=== PATIENT | male | born 1965 | race African-American/Black ===

== ENCOUNTER 2024-01-23 17:11 | Emergency (ER) | payer OTHER, SELFPAY ==
[2024-01-23 17:12] VITALS: BP 163/94
[2024-01-23 19:45] VITALS: BMI 39.4
[2024-01-23] MEDS: NSS 500 IV (20:46)
[2024-01-23 20:54] LABS: % Basophils 0.9 % (0-2); % Eosinophils 2.8 % (0-6); % Lymphocytes 29.2 % (20.5-51.1); % Monocytes 8.4 % (1.7-9.3); % Neutrophils 57.7 % (42.2-75.2); Absolute Basophils 0.1 10^3/uL (0-0.2); Absolute Eosinophils 0.3 10^3/uL (0-0.7); Absolute Immature Granulocytes 0.1 10^3/uL (0-0.05); Absolute Lymphocytes 2.6 10^3/uL (1.2-3.4); Absolute Monocytes 0.8 10^3/uL (0.1-0.6); Absolute Neutrophils 5.1 10^3/uL (1.4-6.5); Hematocrit 45.4 % (39.0-52.0); Hemoglobin 15.3 g/dL (13.0-18.0); Mean Corp Hgb Conc. 33.7 g/dL (33.0-37.0); Mean Corpuscular Hgb 27.8 pg (27.0-31.0); Mean Corpuscular Volume 82.5 fL (80.0-94.0); Mean Platelet Volume 10.3 fL (7.4-10.4); Nucleated Red Blood Cells % 0 % (-); Platelet Count 247 10^3/uL (130-400); Red Cell Dist. Width 14.1 % (11.5-14.5); Urine Albumin Negative (Neg - Trace); Urine Bilirubin Negative (Negative); Urine Character Clear (Clear); Urine Color Yellow; Urine Glucose Negative (Negative); Urine Ketone Negative (Negative); Urine Leukocyte Negative (Negative); Urine Nitrite Negative (Negative); Urine Occult Blood Negative (Negative); Urine Urobilinogen Negative (Neg - 1+); White Blood Cell Count 8.9 10^3/uL (4.8-10.8)
[2024-01-23] MEDS: ZOFRAN 4 MG IV (20:57)
[2024-01-23] MEDS: OMNIPAQUE 50 ML PO (20:57)
[2024-01-23 21:06] LABS: Lactic Acid 0.8 mmol/L (0.7-2.0)
[2024-01-23 21:19] LABS: ALT (SGPT) 31 U/L (0-50); AST (SGOT) 30 U/L (17-59); Albumin 4.5 g/dl (3.5-5.0); Alkaline Phosphatase 84 U/L (38-126); Blood Urea Nitrogen 19 mg/dl (9-20); Calcium 9.5 mg/dl (8.4-10.2); Carbon Dioxide 28 mmol/L (22-30); Chloride 103 mmol/L (98-107); Glucose 85 mg/dl (70-99); Lipase 116 U/L (23-300); Potassium 4.4 mmol/L (3.5-5.1); Sodium 136 mmol/L (135-145); Total Bilirubin 0.5 mg/dl (0.2-1.3); Total Protein 7.5 g/dl (6.3-8.2); eGFR > 60.00
--- NOTE | 2024-01-23 23:15 | ED.GENMED ---
History of Present Illness
General
Chief Complaint: Abdominal Pain
Source: patient, spouse and family
Exam Limitations: none
Time Seen by Provider: 01/23/24 18:41
Nursing documentation reviewed up to this point in time: agreed with
Travel History
Have you had any contact with someone who has COVID-19?: No
Do you have any symptoms of coronavirus? Fever > 100 degrees, chills, cough, shortness of breath, sore throat, loss of taste or smell, muscle aches, or headache?: No
History of Present Illness
History of Present Illness:
58-year-old male with past medical history of previous PE currently on Eliquis, history of diverticulitis hypertension hyperlipidemia, CHF presenting to the emergency department today with concerns of left lower quadrant abdominal pain. He claims
this feels somewhat similar to previous episodes of diverticulitis. Denies specific fever no nausea vomiting no chest pain no urinary symptoms.
Past History
Past History
ED Past Medical History: CHF, HTN, NIDDM and Other (diverticulitis)
ED Past Surgical History: Bowel resection and Other ([place] tooth extraction and, wrist tendon repair)
Social History
Tobacco: Non-smoker
Alcohol: None
Drug: None
Personal:
Living: with family
Employment: Employed
Family History
Family History: Adopted
Review of Systems
Review of Systems
Allergies reviewed?: Yes
All Other Systems: ROS reviewed and negative except as documented in HPI and ROS
Phy Exam
Physical Exam
Physical Exam:
GENERAL: Alert , in no apparent distress
EYE: pupils equal and reactive
NECK: Supple, no significant adenopathy.
ENT: o/p clr, mmm.
CARDIAC: Regular rate and rhythm .
LUNGS: Clear breath sounds bilaterally, no acute respiratory distress, no wheezes/rales/rhonchi
ABDOMEN: Left lower quadrant abdominal pain no guarding remainder of the abdomen soft without tenderness
NEUROLOGICAL: Alert and oriented, no focal neuro deficits
SKIN: Warm and dry, skin intact.
MUSCULOSKELETAL: No edema, well perfused.
PSYCH: Normal and appropriate interaction.
Course
Orders/Labs/Results
Orders:
Orders
01/23/24 19:18
CT Abd/pel W Iv And Oral Contr Urgent
Comment:
Reason For Exam: llq pain
0.9% Sodium Chloride 500 ml [Nss] 500 ml IV BOLUS
Iohexol [Omnipaque] See Protocol PO NOW STA
Ondansetron Injectable [Zofran] 4 mg IV NOW STA
01/23/24 20:42
Complete Blood Count/With Diff Urgent
Comprehensive Metabolic Panel Urgent
Lactic Acid Urgent
Lipase Urgent
Urinalysis Reflex To Culture Urgent
Date Specimen was Collected: 01/23/24
Time Specimen was Collected: 20:32
Abnormal Lab Results
01/23/24
20:42
Abs Immat Gran (auto) 0.1 H 10^3/uL
(0-0.05)
Absolute Monos (auto) 0.8 H 10^3/uL
(0.1-0.6)
Immature Gran % 1.0 H %
(0-0.5)
01/23/24 20:42
01/23/24 20:42
Vital Signs
Initial and Last Documented VS:
Initial Vital Signs
Temp Pulse Resp BP Pulse Ox
99.0 F 106 18 163/94 96
01/23/24 17:12 01/23/24 17:12 01/23/24 17:12 01/23/24 17:12 01/23/24 17:12
Last Documented Vital Signs
Temp Pulse Resp BP Pulse Ox
98.8 F 84 17 148/88 97
01/24/24 00:20 01/24/24 00:20 01/24/24 00:20 01/24/24 00:01/24/24 00:20
MDM/Problems Addressed
MDM/Problems Addressed:
58-year-old male presenting to the emergency department today with concerns of left lower quadrant abdominal pain over the past few days worsening today. Upon arrival heart rate slightly elevated but improving without specific treatment afebrile
tenderness only to the left lower quadrant no guarding no peritoneal signs. No white count on labs otherwise labs unremarkable urinalysis normal CT scan obtained. CT without acute findings. Patient generally well-appearing at time of
reassessment. Stable for outpatient management advised for close outpatient follow-up. Return precautions given.
*Critical Care Note
Total Time (30-74mins, 75-104mins- exclusive of procedures): Not Applicable
ED Attending Note
-
Portions of this chart may have been created with voice recognition software.� Occasional wrong word or��sound alike� substitutions may have occurred due to the inherent limitations of voice recognition software.
Discharge Plan
Departure
Patient Disposition: Home (Routine Discharge)
Date of Disposition: 01/24/24
Time of Disposition: 00:13
Patient with high blood pressure during this ER visit?: Yes
Condition: Good
Covid-19: Not Applicable
Discharge Problem:
Abdominal pain
Instructions: BLOOD PRESSURE
Prescriptions:
No Action
furosemide 40 MG tablet
40 mg PO DAILY
carvedilol 6.25 MG tablet
6.25 mg PO BID
Patient Comments:
Unsure of dose, knows he takes it BID.
aspirin 81 MG tablet,delayed release (DR/EC)
81 mg PO DAILY
Patient Comments:
advised to call doctor re: instructions
losartan 50 MG tablet
50 mg PO DAILY
albuterol sulfate 1 PUFF HFA aerosol inhaler
1 puff inhalation R Q4HPRN PRN (Reason: breathing) Qty: 1 0RF
Patient Comments:
doesn't use
metformin 500 MG tablet
500 mg PO HS
acetaminophen [Tylenol Extra Strength] 500 MG tablet
500 - 1,000 mg PO DAILYPRN PRN (Reason: back stiffness)
ibuprofen [Advil] 200 MG tablet
200 - 400 mg PO DAILYPRN PRN (Reason: back stiffness)
apixaban [Eliquis] 5 MG tablet
5 mg PO BID
Patient Comments:
told to stop Saturday05/07/21
cholecalciferol (vitamin D3) 2,000 UNITS tablet
2,000 units PO DAILY
penicillin V potassium 500 MG tablet
500 mg PO QID Qty: 28 0RF
Referrals:
Buck Arzate PA-C [Family Provider] -
Activity Restrictions/Additional Instructions:
You came to the emergency department today with concerns of lower abdominal discomfort. Here you had a reassuring evaluation. Please follow closely as an outpatient. Return to the emergency department for any worsening, new or concerning symptoms.
Interventions
Interventions:
*Risk Screen - Suicide Last Done: 01/23/24 17:12
*General Assessment Last Done: 01/23/24 17:12
*Neglect/Abuse Screening Last Done: 01/23/24 17:12
ED- Fall Risk Assessment Last Done: 01/23/24 19:45
*ED COVID-19 Vaccine History Last Done: 01/23/24 17:12
*Nursing Disposition Last Done: 01/24/24 00:30
RZ-Nsfium-Uxmwqhjbsf Assessment Last Done: 01/23/24 19:45
Discharge Date and Time
Discharge Date/Time: 01/24/24 00:30
[2024-01-24 00:20] VITALS: BP 148/88
== END 2024-01-24 00:30 | disposition home or self-care (01) ==
LOC: EMR 17:11
PROVIDERS: Physician Assistant; EMERGENCY PHYSICIAN Emergency Medicine; FAMILY PHYSICIAN Physician Assistant Medical
DX: R10.32 Left lower quadrant pain (principal); R00.0 Tachycardia, unspecified; I10 Essential (primary) hypertension; Z93.3 Colostomy status; Z79.01 Long term (current) use of anticoagulants
CPT/HCPCS: 99285; 96374; 96361 ×2; 74177; 80053; 81003; 83605; 83690; 85025; Q9967

== ENCOUNTER → 2024-12-07 11:12 | Outpatient (REF) | payer OTHER, SELFPAY | LOC: RCS 11:12 | PROVIDERS: ATTENDING PHYSICIAN Nurse Practitioner; FAMILY PHYSICIAN Physician Assistant Medical | DX: I50.9 Heart failure, unspecified (principal); I51.7 Cardiomegaly; I42.9 Cardiomyopathy, unspecified | CPT/HCPCS: 93306 ==

== ENCOUNTER 2025-01-25 05:32 | Emergency (ER) | payer OTHER, SELFPAY ==
[2025-01-25 05:32] VITALS: BMI 39.4
[2025-01-25 05:39] VITALS: BP 142/104
[2025-01-25 06:04] VITALS: BP 129/80
[2025-01-25 06:19] VITALS: BP 113/78
[2025-01-25 06:30] LABS: % Basophils 0.8 % (0-2); % Eosinophils 3.2 % (0-6); % Immature Granulocytes 0.2 % (0-0.5); % Lymphocytes 28.5 % (20.5-51.1); % Monocytes 8.7 % (1.7-9.3); % Neutrophils 58.6 % (42.2-75.2); Absolute Basophils 0.1 10^3/uL (0-0.2); Absolute Eosinophils 0.3 10^3/uL (0-0.7); Absolute Lymphocytes 2.4 10^3/uL (1.2-3.4); Absolute Monocytes 0.7 10^3/uL (0.1-0.6); Absolute Neutrophils 4.9 10^3/uL (1.4-6.5); Hematocrit 42.1 % (39.0-52.0); Hemoglobin 14.7 g/dL (13.0-18.0); Mean Corp Hgb Conc. 34.9 g/dL (33.0-37.0); Mean Corpuscular Hgb 28.3 pg (27.0-31.0); Mean Platelet Volume 10.6 fL (7.4-10.4); Nucleated Red Blood Cells % 0 % (-); Platelet Count 191 10^3/uL (130-400); Red Cell Dist. Width 14.9 % (11.5-14.5); White Blood Cell Count 8.4 10^3/uL (4.8-10.8)
[2025-01-25 06:47] LABS: ALT (SGPT) 29 U/L (0-50); AST (SGOT) 32 U/L (17-59); Albumin 4.1 g/dl (3.5-5.0); Alkaline Phosphatase 83 U/L (38-126); Blood Urea Nitrogen 17 mg/dl (9-20); Calcium 9.3 mg/dl (8.4-10.2); Carbon Dioxide 20 mmol/L (22-30); Chloride 108 mmol/L (98-107); Estimated Creatinine Clearance 101 ml/min; Glucose 117 mg/dl (70-99); Potassium 4.7 mmol/L (3.5-5.1); Sodium 138 mmol/L (135-145); Total Bilirubin 0.7 mg/dl (0.2-1.3); eGFR > 60.00
[2025-01-25 06:56] LABS: NT-proBNP 1480 pg/ml; Troponin I < 0.012 ng/ml
[2025-01-25 07:00] VITALS: BP 133/87
--- NOTE | 2025-01-25 07:38 | ED.GENMED ---
History of Present Illness
General
Chief Complaint: Cardiac Symptoms
Source: patient and spouse
Exam Limitations: none
Time Seen by Provider: 01/25/25 06:32
History of Present Illness
History of Present Illness:
59-year-old male who presents short of breath. Patient admits that he has a history of CHF and has not taken his Lasix since Saturday. He states that sometimes he does not like to take it when he drives to work since he has to drive about an hour
to work. Patient states that at home last night he started really wheezing and could not lay flat. He was much more short of breath laying flat. Also admits to some lower extremity edema. He does feel better. He took his Lasix at home but since
been urinating. No vomiting. No chest pain. No fevers. No hemoptysis. Patient states he had an echocardiogram not too long ago. He follows with Dr. Brown.
Past History
Past History
ED Past Medical History: CHF, HTN, NIDDM and Other (diverticulitis, pulmonary embolism)
ED Past Surgical History: Bowel resection and Other ([place] tooth extraction and, wrist tendon repair)
Social History
Tobacco: Non-smoker
Alcohol: None
Drug: None
Personal:
Living: with family
Employment: Employed
Family History
Family History: Adopted
Phy Exam
Physical Exam
Physical Exam:
CONSTITUTIONAL Patient alert and oriented to person, place and time. Well-appearing. Vital signs reviewed.
HEAD atraumatic, normocephalic.
EYES eyelids normal to inspection, Extraocular muscles intact, Conjunctiva normal, Sclera normal.
NECK normal range of motion, Trachea midline, no jugular venous distention.
RESPIRATORY CHEST No respiratory distress noted, Chest expansion equal, mostly clear with very faint crackles at bilateral bases.
CARDIOVASCULAR regular rate and rhythm, Heart sounds normal.
BACK normal inspection, no obvious deformities
UPPER EXTREMITY range of motion normal, Motor strength normal, no cyanosis, no edema.
LOWER EXTREMITY range of motion normal, Motor strength normal, no cyanosis, bilateral edema.
NEURO Speech normal, No focal motor deficits, [place] coma scale 15, Memory normal, Cranial Nerves intact to screening exam.
SKIN skin warm, dry, and normal in color.
Course
Orders/Labs/Results
Orders:
Orders
01/25/25 05:44
Electrocardiogram (*1) Urgent
Reason for Study: Shortness of Breath
EKG- Treatment ONCE
Chest [CR Chest - 2 Views ] Urgent
Comment:
Reason For Exam: SHORT OF BREATH
01/25/25 06:22
Complete Blood Count/With Diff Urgent
Comprehensive Metabolic Panel Urgent
NT-proBNP Urgent
Troponin I Urgent
01/25/25 09:04
Acetaminophen [Tylenol] 1,000 mg PO NOW STA
Abnormal Lab Results
01/25/25
06:22
RDW 14.9 H %
(11.5-14.5)
MPV 10.6 H fL
(7.4-10.4)
Absolute Monos (auto) 0.7 H 10^3/uL
(0.1-0.6)
Chloride 108 H mmol/L
(98-107)
Carbon Dioxide 20 L mmol/L
(22-30)
Glucose 117 H mg/dl
(70-99)
01/25/25 06:22
01/25/25 06:22
Vital Signs
Initial and Last Documented VS:
Initial Vital Signs
Temp Pulse Resp BP Pulse Ox
97.7 F 96 28 142/104 93
01/25/25 05:39 01/25/25 05:39 01/25/25 05:39 01/25/25 05:39 01/25/25 05:39
Last Documented Vital Signs
Temp Pulse Resp BP Pulse Ox
97.7 F 87 21 140/92 97
01/25/25 05:39 01/25/25 08:30 01/25/25 08:30 01/25/25 08:00 01/25/25 08:30
MDM/Problems Addressed
Differential Diagnosis Includes:
ACS, CHF, pericardial effusion, pneumothorax, pneumonia, arrhythmia, electrolyte disturbance, renal failure, uncontrolled hypertension
MDM/Problems Addressed:
Volume overload, CHF
Chronic conditions affecting care: Cardiomyopathy
*Radiology
Radiology exam reviewed: preliminary read by ED provider
*Pulse Oximetry
Patient hypoxic: no
*EKG
Interpreted by ED Provider?: Yes
Rate: normal
Rhythm: sinus
[place]: normal axis
Ischemia: no ischemia
*[place] Interpretation
Rate: normal
Interpretation: normal
Rhythm: sinus
*Critical Care Note
Total Time (30-74mins, 75-104mins- exclusive of procedures): Not Applicable
Data Reviewed
Review of Other/Old Records Reveals: Other (November echocardiogram reviewed. Ejection fraction 41%)
Source: patient and spouse
Further Testing Considered But Not Given:
Consider CTA but patient already anticoagulated
Patient Management
Escalation/DeEscalation of care consider admission/obs:
59-year-old male who presents with shortness of breath. Patient took his Lasix prior to coming in and actually feels better and has been urinating a lot since he has been here. Patient mitts he has not been taking his Lasix. Recent echocardiogram
reviewed showing a decrease in his ejection fraction to 40%. Blood pressure slightly elevated. I will refer him to the heart failure follow-up hotline. Do think he is stable for discharge. He is ambulatory at home and feels much better.
Counseled the importance of blood pressure control and proper volume control
ED Attending Note
-
Portions of this chart may have been created with voice recognition software.� Occasional wrong word or��sound alike� substitutions may have occurred due to the inherent limitations of voice recognition software.
Discharge Plan
Departure
Patient Disposition: Home (Routine Discharge)
Date of Disposition: 01/25/25
Time of Disposition: 10:02
Patient with high blood pressure during this ER visit?: Yes
Discharge Problem:
CHF (congestive heart failure)
Instructions: *[facility] Heart Failure Instructions, BLOOD PRESSURE
Prescriptions:
No Action
furosemide 40 MG tablet
40 mg PO DAILY
carvedilol 6.25 MG tablet
6.25 mg PO BID
Patient Comments:
Unsure of dose, knows he takes it BID.
aspirin 81 MG tablet,delayed release (DR/EC)
81 mg PO DAILY
Patient Comments:
advised to call doctor re: instructions
losartan 50 MG tablet
50 mg PO DAILY
albuterol sulfate 1 PUFF HFA aerosol inhaler
1 puff inhalation R Q4HPRN PRN (Reason: breathing) Qty: 1 0RF
Patient Comments:
doesn't use
metformin 500 MG tablet
500 mg PO HS
acetaminophen [Tylenol Extra Strength] 500 MG tablet
500 - 1,000 mg PO DAILYPRN PRN (Reason: back stiffness)
ibuprofen [Advil] 200 MG tablet
200 - 400 mg PO DAILYPRN PRN (Reason: back stiffness)
apixaban [Eliquis] 5 MG tablet
5 mg PO BID
Patient Comments:
told to stop Saturday05/07/21
cholecalciferol (vitamin D3) 2,000 UNITS tablet
2,000 units PO DAILY
penicillin V potassium 500 MG tablet
500 mg PO QID Qty: 28 0RF
Referrals:
Buck Arzate PA-C [Family Provider] -
Activity Restrictions/Additional Instructions:
Please be sure to be diligent to take your Lasix daily as prescribed. 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 Please see your gem expert in the next 2 to 3 days for follow-up and reevaluation. Return
immediately for worsening shortness of breath, leg swelling, chest pain, weakness of any kind or any other concerns
Interventions
Interventions:
*Risk Screen - Suicide Last Done: 01/25/25 05:39
*General Assessment Last Done: 01/25/25 06:35
*Neglect/Abuse Screening Last Done: 01/25/25 05:39
*ED- Fall Risk Assessment Last Done: 01/25/25 06:35
*ED COVID-19 Vaccine History Last Done: 01/25/25 06:35
ED- Pulmonary Assessment Last Done: 01/25/25 06:35
ED- Cardiac Assessment Last Done: 01/25/25 06:35
Discharge Date and Time
Print Language: CANADIAN
[2025-01-25 08:00] VITALS: BP 140/92
[2025-01-25] MEDS: TYLENOL 1000 MG PO (09:27)
== END 2025-01-25 10:02 | disposition home or self-care (01) ==
LOC: EMR 05:32
PROVIDERS: Emergency Medicine; EMERGENCY PHYSICIAN Emergency Medicine; FAMILY PHYSICIAN Physician Assistant Medical
DX: I50.9 Heart failure, unspecified (principal); I11.0 Hypertensive heart disease with heart failure
CPT/HCPCS: 99285; 71046; 80053; 83880; 84484; 85025; 93005

== ENCOUNTER 2025-03-29 11:59 | Emergency (ER) | payer OTHER, SELFPAY ==
[2025-03-29] VITALS (13 sets, daily range): BP systolic 104–137; BP diastolic 70–87
[2025-03-29 12:27] LABS: % Eosinophils 3.6 % (0-6); % Immature Granulocytes 0.3 % (0-0.5); % Lymphocytes 26.7 % (20.5-51.1); % Monocytes 10.4 % (1.7-9.3); Absolute Basophils 0.1 10^3/uL (0-0.2); Absolute Eosinophils 0.4 10^3/uL (0-0.7); Absolute Lymphocytes 2.6 10^3/uL (1.2-3.4); Absolute Neutrophils 5.7 10^3/uL (1.4-6.5); Hematocrit 43.7 % (39.0-52.0); Hemoglobin 14.2 g/dL (13.0-18.0); Mean Corp Hgb Conc. 32.5 g/dL (33.0-37.0); Mean Corpuscular Hgb 27.7 pg (27.0-31.0); Mean Corpuscular Volume 85.2 fL (80.0-94.0); Nucleated Red Blood Cells % 0 % (-); Platelet Count 280 10^3/uL (130-400); Red Blood Cell Count 5.13 10^6/uL (4.70-6.10); Red Cell Dist. Width 14.7 % (11.5-14.5); White Blood Cell Count 9.9 10^3/uL (4.8-10.8)
[2025-03-29 12:39] LABS: INR 1.15
[2025-03-29 12:40] LABS: APTT 31.8 Sec (23.4-35.0)
[2025-03-29 12:47] LABS: ALT (SGPT) 35 U/L (0-50); AST (SGOT) 26 U/L (17-59); Albumin 4.4 g/dl (3.5-5.0); Alkaline Phosphatase 84 U/L (38-126); Blood Urea Nitrogen 21 mg/dl (9-20); Calcium 9.6 mg/dl (8.4-10.2); Carbon Dioxide 28 mmol/L (22-30); Chloride 108 mmol/L (98-107); Glucose 121 mg/dl (70-99); Potassium 4.6 mmol/L (3.5-5.1); Sodium 140 mmol/L (135-145); Total Bilirubin 0.6 mg/dl (0.2-1.3); Total Protein 7.3 g/dl (6.3-8.2); Troponin I < 0.012 ng/ml; eGFR > 60.00
--- NOTE | 2025-03-29 13:08 | ED.GENMED ---
History of Present Illness
General
Chief Complaint: Cardiac Symptoms
Source: patient
Time Seen by Provider: 03/29/25 12:35
History of Present Illness
History of Present Illness:
59-year-old male presents to the emergency room complaining of abnormal heart rhythm. Patient was sent to the emergency room by his primary care provider who found that he was in atrial flutter with a rate of 130. Patient was recently diagnosed
with A-fib a flutter. [facility] because he was very short of breath. He was found to have an exacerbation of heart failure as well as atrial fibrillation. He was loaded with amiodarone,
anticoagulated and ultimately underwent synchronized cardioversion. He recalls having a transthoracic echo but does not recall a transesophageal echo. He was discharged on Eliquis and has been compliant with his Eliquis. He has been taking
anticoagulation for 12 days. Patient was feeling much better at discharge and when he went to his family doctor's office today was feeling great. He was surprised to hear he was in an abnormal rhythm.
Past History
Past History
ED Past Medical History: CHF, HTN, NIDDM and Other (diverticulitis, pulmonary embolism)
ED Past Surgical History: Bowel resection and Other ([place] tooth extraction and, wrist tendon repair)
Social History
Tobacco: Non-smoker
Alcohol: None
Drug: None
Personal:
Living: with family
Employment: Employed
Family History
Family History: Adopted
Phy Exam
Physical Exam
Physical Exam:
General: Awake, Alert, Oriented X3. No acute distress.
Vitals: Tachycardic
Head: Atraumatic
Eyes: Pupils equal, EOMI
Throat: Airway intact, no exudates
Neck: Trachea midline
Lungs: Clear and equal b/l
Heart: Tachycardic, irregularly. Rate, no murmurs
Abd: Soft, Nontender, No pulsatile mass
Neuro: Nonfocal
Skin: Warm, dry, no rash
Extremities: pulses equal b/l, no edema
Scores
[id number] Score for Afib Stroke Risk
Age in Years (65=0, 65-74=1, >/=75=2): <65
Sex (Female=+1): Male
Congestive Heart Failure History (Yes=+1): Yes
Hypertension History (Yes=+1): Yes
Stroke/TIA/Thromboembolism History (Yes=+2): No
Vascular Disease History (Yes=+1): No
Diabetes Mellitus (Yes=+1): No
Score: 2
Anticoagulation Recommendations: Recommend anticoagulation (as validated in nonvalvular fib)
Course
Orders/Labs/Results
Orders:
Orders
03/29/25 12:00
Electrocardiogram (*1) Urgent
Reason for Study: Atrial Flutter
EKG- Treatment ONCE
03/29/25 12:11
Complete Blood Count/With Diff Urgent
Comprehensive Metabolic Panel Urgent
PT/INR [Prothrombin Time] Urgent
Is patient on Coumadin/Warfarin?: No
Comment: [email or web address]
PTT Urgent
Troponin I Urgent
03/29/25 13:30
Propofol [Diprivan] 20 ml .ROUTE .STK-MED
03/29/25 13:53
EKG [Electrocardiogram (*1)] Urgent
Reason for Study: Atrial Flutter
EKG- Treatment ONCE
Abnormal Lab Results
03/29/25
12:11
MCHC 32.5 L g/dL
(33.0-37.0)
RDW 14.7 H %
(11.5-14.5)
Absolute Monos (auto) 1.0 H 10^3/uL
(0.1-0.6)
Monocytes % 10.4 H %
(1.7-9.3)
PT 15.0 H Sec
(11.4-14.6)
Chloride 108 H mmol/L
(98-107)
BUN 21 H mg/dl
(9-20)
Glucose 121 H mg/dl
(70-99)
03/29/25 12:11
03/29/25 12:11
Vital Signs
Initial and Last Documented VS:
Initial Vital Signs
Temp Pulse Resp BP Pulse Ox
98.2 F 130 16 128/87 98
03/29/25 12:04 03/29/25 12:04 03/29/25 12:04 03/29/25 12:04 03/29/25 12:04
Last Documented Vital Signs
Temp Pulse Resp BP Pulse Ox
97 F 76 18 110/77 97
03/29/25 14:30 03/29/25 14:30 03/29/25 14:30 03/29/25 14:30 03/29/25 14:30
Procedures
Cardioversion
Indication:: Afib
Synchronized?: Yes
Energy Used: 200 joules
Successful?: Yes
ASA Risk Score: Class II
Any reaction or bad outcome to prior sedation/anesthesia?: No history of a reaction
Sedation level to be attained: moderate
Chart and allergies reviewed: Yes
Patient reassessed prior to sedation: Yes
Time out completed at (validating right patient & procedure): 13:50
History of difficult intubation: No
Airway free of obstruction: Yes
Patient has a gag reflex: Yes
Patient is able to open mouth: Yes
Patient has no dentures: Yes
Patient has no loose teeth: Yes
Medication administered by Provider during Moderate Sedation: IV Propofol (mg)
Total dose administered: 100
Time drug administered: 13:50
Start Time: 13:50
Stop Time: 14:01
MDM/Problems Addressed
MDM/Problems Addressed:
Patient presents with a flutter and rapid ventricular response. Patient recently hospitalized at a facility in [place] where he underwent a synchronized cardioversion and diuresis for heart failure. He has been taking anticoagulants since
then. He did have an echo prior to procedure in [place]. Patient sees Dr. Zhu for nonischemic cardiomyopathy. I discussed the patient with him. He recommends cardioversion here and the patient should take amiodarone 400 mg a day until
he is seen in the office. The patient has been taking Amio but was supposed to reduce his dose to 200 mg a day tomorrow. The cardioversion was successful. Patient instructed to continue taking his anticoagulants and to take amiodarone 4 to
milligrams a day until seen by cardiology. Patient recovered from sedation well.
*Pulse Oximetry
Patient hypoxic: no
*EKG
Interpreted by ED Provider?: Yes
Interpretation: abnormal
Heart Rate: 126
Rate: tachycardiac
Rhythm: atrial flutter
[place]: normal axis
Interval: normal interval
QRS Pattern: normal QRS
Ischemia: non-specific ST changes
*Creative Specialist Interpretation
Rate: tachycardiac
Interpretation: abnormal
Rhythm: atrial flutter
*Critical Care Note
Total Time (30-74mins, 75-104mins- exclusive of procedures): Not Applicable
ED Attending Note
-
Portions of this chart may have been created with voice recognition software.� Occasional wrong word or��sound alike� substitutions may have occurred due to the inherent limitations of voice recognition software.
Discharge Plan
Departure
Patient Disposition: Home (Routine Discharge)
Date of Disposition: 03/29/25
Time of Disposition: 14:37
Patient with high blood pressure during this ER visit?: No
Condition: Good
Discharge Problem:
Paroxysmal atrial flutter
Instructions: Atrial fibrillation and atrial flutter - ED discharge instructions, Sedation for procedures in adults - ED discharge instructions
Prescriptions:
No Action
furosemide 40 MG tablet
40 mg PO DAILY
carvedilol 6.25 MG tablet
6.25 mg PO BID
Patient Comments:
Unsure of dose, knows he takes it BID.
aspirin 81 MG tablet,delayed release (DR/EC)
81 mg PO DAILY
Patient Comments:
advised to call doctor re: instructions
losartan 50 MG tablet
50 mg PO DAILY
albuterol sulfate 1 PUFF HFA aerosol inhaler
1 puff inhalation R Q4HPRN PRN (Reason: breathing) Qty: 1 0RF
Patient Comments:
doesn't use
metformin 500 MG tablet
500 mg PO HS
acetaminophen [Tylenol Extra Strength] 500 MG tablet
500 - 1,000 mg PO DAILYPRN PRN (Reason: back stiffness)
ibuprofen [Advil] 200 MG tablet
200 - 400 mg PO DAILYPRN PRN (Reason: back stiffness)
apixaban [Eliquis] 5 MG tablet
5 mg PO BID
Patient Comments:
told to stop Saturday05/07/21
cholecalciferol (vitamin D3) 2,000 UNITS tablet
2,000 units PO DAILY
penicillin V potassium 500 MG tablet
500 mg PO QID Qty: 28 0RF
Referrals:
John Brown MD [Active] -
Buck Arzate PA-C [Family Provider] -
Activity Restrictions/Additional Instructions:
Take 400mg of Amiodarone a day until you see Dr. Brown. Otherwise continue all other medications.
Interventions
Interventions:
*Risk Screen - Suicide Last Done: 03/29/25 12:07
*General Assessment Last Done: 03/29/25 12:49
*Neglect/Abuse Screening Last Done: 03/29/25 12:07
*ED- Fall Risk Assessment Last Done: 03/29/25 12:49
*ED COVID-19 Vaccine History Last Done: 03/29/25 12:49
*Nursing Disposition Last Done: 03/29/25 14:45
ED- Pulmonary Assessment Last Done: 03/29/25 12:49
ED- Cardiac Assessment Last Done: 03/29/25 12:49
Discharge Date and Time
Discharge Date/Time: 03/29/25 14:45
Print Language: SINHAL[place]
== END 2025-03-29 14:45 | disposition home or self-care (01) ==
LOC: EMR 11:59
PROVIDERS: Emergency Medicine; EMERGENCY PHYSICIAN Emergency Medicine; FAMILY PHYSICIAN Physician Assistant Medical
DX: I48.92 Unspecified atrial flutter (principal); E11.9 Type 2 diabetes mellitus without complications; I11.0 Hypertensive heart disease with heart failure; I50.9 Heart failure, unspecified; I48.91 Unspecified atrial fibrillation; Z79.01 Long term (current) use of anticoagulants
CPT/HCPCS: 92960; 99152; 99285; 80053; 84484; 85025; 85610; 85730; 93005

== ENCOUNTER 2025-06-07 05:55 | Day surgery (SDC) | payer OTHER, SELFPAY ==
[2025-05-18 08:50] VITALS: BMI 39.4
[2025-05-18 09:19] LABS: Hematocrit 42.0 % (39.0-52.0); Hemoglobin 13.8 g/dL (13.0-18.0); Mean Corp Hgb Conc. 32.9 g/dL (33.0-37.0); Mean Corpuscular Volume 84.0 fL (80.0-94.0); Nucleated Red Blood Cells % 0 % (-); Platelet Count 222 10^3/uL (130-400); Red Cell Dist. Width 15.0 % (11.5-14.5)
[2025-05-18 09:25] LABS: INR 0.98; PT 13.3 Sec (11.4-14.6)
[2025-05-18 09:31] LABS: ALT (SGPT) 39 U/L (0-50); AST (SGOT) 27 U/L (17-59); Albumin 4.5 g/dl (3.5-5.0); Alkaline Phosphatase 76 U/L (38-126); Blood Urea Nitrogen 25 mg/dl (9-20); Calcium 9.3 mg/dl (8.4-10.2); Carbon Dioxide 27 mmol/L (22-30); Chloride 105 mmol/L (98-107); Estimated Creatinine Clearance 69 ml/min; Glucose 108 mg/dl (70-99); Magnesium 2.0 mg/dl (1.6-2.3); Potassium 4.4 mmol/L (3.5-5.1); Sodium 140 mmol/L (135-145); Total Protein 7.5 g/dl (6.3-8.2); eGFR 57.18
[2025-06-07] VITALS (14 sets, daily range): BP systolic 119–139; BP diastolic 63–86; BMI 38.0
[2025-06-07 07:11] LABS: Glucose - Point of Care 97 mg/dl (70-99)
--- NOTE | 2025-06-07 07:33 | ITS.CL.ABL ---
[employer] - Ablation
Ablation
Procedure Report:
Primary Metal Polisher: Dr John Brown
Procedure Date: 06/07/2025
Patient History:
Patient is a pleasant 60-year-old male with a past medical history significant for nonischemic cardiomyopathy, hypertension, LVH, obesity, sleep apnea, hypercholesterolemia, diabetes mellitus 2, symptomatic paroxysmal atrial arrhythmias.
See H&P for complete details.
Indication:
Symptomatic paroxysmal atrial fibrillation
Symptomatic paroxysmal atrial flutter
Arrhythmia Specific History:
Prior Medical Therapies for Rate and Rhythm Control:
X Beta-michelle
[ ] Calcium channel-michelle
X Amiodarone
[ ] Dronederone
[ ] Sotalol
[ ] Flecainide
[ ] Dofetilide
[ ] Options limited by bradycardia
[ ] Options limited by comorbid renal disease
Prior Procedural Therapies for AF/AFL:
X Cardioversion - x2
[ ] Pulmonary Vein Isolation
[ ] Posterior Wall Isolation
[ ] Additional lines (Specify)
[ ] Surgical Aguilar-MAZE or PVI (Specify)
Procedure Performed:
X AF ablation procedure (87335) -- includes LA/CS pacing, trans-septal, 3D mapping, + ICE
[ ] +IV drug (67700)
X +Other Arrhythmia (71310) -- CTI Ablation for atrial flutter
[ ] +Other AF Line/ablation (63685)
Risks and expected recovery has been explained in detail. Alternative options have been explored, and in a shared-decision making fashion we have decided that this was the most appropriate procedure.
Method
NPO status confirmed. Grounding pad applied. Defibrillator pads applied. Continuous surface ECG, pulse oximetry, and blood pressure were monitored. Procedure was performed under general anesthesia, with anesthesia services.
Both groins were clipped, prepped with Chloraprep, and draped in sterile fashion. Time out was called. Local anesthesia administered with bupivacaine. The right femoral vein was accessed for catheter placement, using ultrasound guidance (images
saved to record), micro-puncture needle/wire, and modified seldinger technique. 3 sheaths were placed. The following catheters were used:
[ ] Tacticath SE (D/F Curve) ablation catheter
X Viewflex 9Fr ICE catheter
X Inquiry decapolar 6Fr diagnostic catheter
[ ] CRD Hex 6Fr
X Agilis 11.5 Fr Steerable Sheath
X Sphere-9 Ablation catheter
[ ] Advisor HD Grid Mapping Catheter, SE
[ ] Acuson AcuNav 8 Fr ICE catheter
[ ] Other: [ ]
A multipolar catheter were advanced to the coronary sinus. Intracardiac ultrasound (ICE) was carefully advanced into the right atrium to guide sheath placement over a J-wire, catheter placement, guide trans-septal puncture, identify potential
complications, identify anatomic structures and ensure proper contact between ablation catheter and tissue.
Heparin was given to achieve and maintain a target ACT of 300-400 seconds throughout the procedure.
The Sphere-9 mapping/ablation catheter (through long steerable sheath was used to map, record, pace, and ablate. Three-dimensional electroanatomic mapping was utilized with careful attention to anatomic landmarks, including the coronary sinus,
IVC-RA and SVC-RA junction, tricuspid valve annulus, and region of the His bundle electrogram. Clockwise and counterclockwise trans-isthmus times were determined. An ablation line was created from the tricuspid annulus to the IVC in the 6:00
position (ESSENCE clock/caudal EAM projection). A combination of RF and PF was used with careful monitoring of impedance, AV conduction, power, and temperature. Ablation continued until a line was complete from the tricuspid valve annulus to the IVC-RA
junction during CS pacing. Clockwise and counterclockwise trans-isthmus times were determined, and RA activation patterns confirmed bidirectional block.
Next, we turned our attention to the AF Ablation.
Trans-septal access was performed under ICE guidance. The trans-septal puncture was performed with a SafeSept wire through a Brockenbrough needle assembly through the steerable sheath. The wire was visualized as it entered the LSPV and system
advanced under ICE guidance and fluoroscopy into the LA. The Brockenbrough needle assembly, SafeSept wire and sheath dilator were removed under negative pressure. LA pressure was measured and recorded.
ICE and 3D mapping was performed to identify relevant cardiac structures. A careful 3D map was created to assess for regions of low-voltage and abnormal electrogram signals using Sphere-9 catheter. Additional mapping was performed as outlined below.
Patient noted by CT scan and by intracardiac ultrasound had a left common pulmonary vein and 3 separate right pulmonary veins (superior, middle, inferior).
Prior to ablation, glycopyrrolate was provided. Sphere 9 catheter was advanced into the left atrium. Electroanatomic mapping was performed using the Sphere 9 catheter. Pulmonary vein isolation was performed using pulsed field ablation in a
circumferential manner. Contact was visualized via EAM, ICE, fluoroscopy, and EGM signals.
Following completion of ablation lesions, a post-ablation voltage/activation map was performed in sinus rhythm. Entrance and exit block were confirmed for each vein.
Catheter and sheath were removed from the left atrium and post-ablation intracardiac echo evaluation was consistent with pre-ablation with no changes and no pericardial effusion and there is no left atrial thrombus or left ventricle thrombus seen.
Repeat mapping of the right atrium demonstrated acute reconnection along the CTI. Additional ablation lesions were performed on the CTI with persistence of bidirectional block. Electrophysiology study was performed. No arrhythmias were induced.
Hemostasis was obtained with figure of 8 stitch for each groin and with manual pressure. Protamine was used for reversal.
Estimated Blood Loss
5 mL
Complications
None
Fluoroscopy: 2.5 minutes; DAP 2.96
LA Pressure: Pre 11 mmHg, post 18 mmHg
Baseline Intervals:
Rhythm: SR
HI: 216 ms
QRS: 102 ms
QT: 390 ms
Post-Procedure Intervals:
HI: 202 ms
QRS: 95 ms
QT: 416 ms
AVWB: 470 ms
AVERP: 600/410 ms
AERP: 600/200 ms
Recommendations
- Bedrest with straight-leg precautions as ordered
- Anticipate same day discharge if patient meeting clinical metrics
- Resume home medications as indicated
- Ok to resume anticoagulation tonight if patient and groin sites stable
- PPI daily for 30 days
- Plan for follow-up in office as scheduled
- Reduce amiodarone to 200 mg daily with plan to discontinue at 3 month office visit
Amaury Nolan, DO, FACC, RS
Clinical Cardiac Marketing Services Vice President
cc: Dr John Brown, Dr Buck Arzate
[2025-06-07 08:54] LABS: ACT-LR - POC 314 Seconds (116-155)
[2025-06-07 09:10] LABS: ACT-LR - POC 343 Seconds (116-155)
[2025-06-07 09:42] LABS: Glucose - Point of Care 119 mg/dl (70-99)
[2025-06-07 09:52] LABS: ACT-LR - POC 361 Seconds (116-155)
[2025-06-07 10:10] LABS: ACT-LR - POC 221 Seconds (116-155)
[2025-06-07] MEDS: TYLENOL 650 MG PO (10:47)
[2025-06-07 11:31] LABS: ACT-LR - POC > 397 Seconds (116-155)
--- NOTE | 2025-06-07 12:30 | W.PN.UPDATE ---
Addendum entered and electronically signed by Amaury Nolan DO 06/07/25 15:34:
Update:
Patient re-evaluated following ambulation. Patient reporting significant improvement in GORMAN/neck pain now 2-3/10. No changes to exam. VSS. sinus rhythm on telemetry. Heat and lidocaine patch improved pain. No barriers to discharge as long as patient
continues to improve clinically. Discussed with patient, family, and nursing.
Addendum entered and electronically signed by Amaury Nolan DO 06/07/25 13:43:
Update:
Re-evaluation of patient, he reports improvement in discomfort to a 6/10 pain scale. He again notes that it is a focal spot of tenderness worse with palpation improved with release on the right neck with radiation to the head. He notes that changing
position also improves the discomfort. Vitals remain stable, telemetry SR. Exam unchanged. Lidoderm patch ordered.
Addendum entered and electronically signed by Amaury oNlan DO 06/07/25 12:57:
Update: at time of evaluation, patient noted tenderness to palpation of right neck which reproduces/worsens the pain in neck/head as described.
Original Note:
Update Note
Progress Note Update
Notified by nursing patient experiencing right sided headache. He reports that it is a significant waxing/waning pain at right side of head with radiation behind right eye. Patient reporting no other symptoms, denies cp, sob, palpitations, focal
weakness, speech difficulty or vision changes. Exam strength 5/5 BL UE/LE, PEERLA. VSS. Patient previously given acetaminophen 650 mg without significant improvement. Patient given food and water without significant improvement. Will provide
ketoralac one time dose and monitor response. Will provide IVF for improved hydration.
[2025-06-07] MEDS: TORADOL 15 MG IV (12:32)
[2025-06-07] MEDS: LIDOCAINE 4% PATCH 1 PATCH TOPICAL (13:59)
== END 2025-06-07 15:30 | disposition home or self-care (01) ==
LOC: CATH 05:55
PROVIDERS: ATTENDING PHYSICIAN Internal Medicine Cardiovascular Disease; FAMILY PHYSICIAN Physician Assistant Medical; REFERRING PHYSICIAN Internal Medicine Cardiovascular Disease
DX: I48.0 Paroxysmal atrial fibrillation (principal); I48.92 Unspecified atrial flutter; E11.9 Type 2 diabetes mellitus without complications; E78.00 Pure hypercholesterolemia, unspecified; G47.33 Obstructive sleep apnea (adult) (pediatric); E66.01 Morbid (severe) obesity due to excess calories; I11.0 Hypertensive heart disease with heart failure; I42.8 Other cardiomyopathies; Z68.39 Body mass index [BMI] 39.0-39.9, adult; Z79.82 Long term (current) use of aspirin; Z79.01 Long term (current) use of anticoagulants; Z79.84 Long term (current) use of oral hypoglycemic drugs; Z79.899 Other long term (current) drug therapy; Z86.14 Personal history of Methicillin resistant Staphylococcus aureus infection; Z86.711 Personal history of pulmonary embolism; Z88.8 Allergy status to other drugs, medicaments and biological substances
CPT/HCPCS: C1733; C1894; C1766; 36415; 75572; 80053; 82962; 83735; 85025; 85347; 85610; 86850; 86900; 86901; 93005; 93655; 93656; Q9967